=== PATIENT | female | born 1990 | race Hispanic/Latino ===

== ENCOUNTER 2022-07-14 15:08 | Day surgery (SDC) | payer OTHER ==
[2022-07-14 15:50] VITALS: BMI 34.2
[2022-07-14 16:35] LABS: Fetal Membranes Rupture No Membranes Rupture (No Rupture)
[2022-07-14 18:27] LABS: Bilirubin Neg (Negative); Blood, Urine Negative (Negative); Clarity Clear (Clear); Glucose, Urine (Dipstick) Normal (Negative); Ketone, Urine Negative (Negative); Leukocyte 25 (Negative); Nitrite Negative (Negative); Protein, Urine (Dipstick) 15 mg/dl (Neg-Trace)
[2022-07-14 18:29] LABS: Urine Culture Reflex No No
[2022-07-14 18:41] LABS: Bacteria/HPF Rare-Few HPF (None Seen); RBC/HPF 0-3 HPF (0-3); Squamous Epithelial 0-3 HPF (0-3); WBC/HPF 0-3 HPF (0-3)
[2022-07-14 18:42] LABS: Other Microscopic Description SEE COMMENTS
== END 2022-07-14 20:36 | disposition home or self-care (01) ==
LOC: CSHLD/OP 15:08
PROVIDERS: ATTEND Student in an Organized Health Care Education/Training Program
DX: O47.1 False labor at or after 37 completed weeks of gestation (principal); Z3A.37 37 weeks gestation of pregnancy; Z98.890 Other specified postprocedural states
CPT/HCPCS: 76819; 81001; 84112; 87086; 99283

== ENCOUNTER 2022-07-18 14:02 | Day surgery (SDC) | payer OTHER ==
[2022-07-18 14:25] VITALS: BMI 34.3
== END 2022-07-18 17:50 | disposition home or self-care (01) ==
LOC: CSHLD/OP 14:02
PROVIDERS: ATTEND Student in an Organized Health Care Education/Training Program
DX: O47.1 False labor at or after 37 completed weeks of gestation (principal); Z3A.38 38 weeks gestation of pregnancy
CPT/HCPCS: 99283

== ENCOUNTER 2022-07-19 07:11 | Inpatient (IN) | payer MEDICAID, OTHER ==
[2022-07-19 08:06] VITALS: BMI 34.3
[2022-07-19] MEDS ORDERED: Lidocaine 1% (PF) 30 ML VIAL SC PRN (08:18)
[2022-07-19] MEDS ORDERED: Acetaminophen 500 MG TAB PO PRN (08:18)
[2022-07-19] MEDS ORDERED: Ibuprofen 800 MG TAB PO PRN (08:18)
[2022-07-19] MEDS ORDERED: Promethazine HCl 25 MG/ML VIAL IM PRN ×2 (08:18→10:23)
[2022-07-19] MEDS ORDERED: Diphenoxylate HCl/Atropine Tablet PO PRN (08:18)
[2022-07-19] MEDS ORDERED: Misoprostol 200 MCG TAB PR PRN (08:18)
[2022-07-19] MEDS ORDERED: Carboprost 250 MCG/ML AMP IM PRN (08:18)
[2022-07-19] MEDS ORDERED: Ondansetron PF 4 MG/2 ML Vial IVP PRN ×3 (08:18→15:33)
[2022-07-19] MEDS ORDERED: hydrALAZINE 20 MG/ML VIAL SLOW IVP PRN ×2 (08:18→15:33)
[2022-07-19] MEDS ORDERED: Methylergonovine 0.2 MG/ML VIAL IM PRN (08:18)
[2022-07-19] MEDS ORDERED: Fentanyl 2 mcg/Bup 0.1% Cadd 100 ML ONE (08:29)
[2022-07-19] MEDS ORDERED: Lactated Ringer's 1,000 ML IV SCH (08:30)
[2022-07-19] MEDS ORDERED: NS w/ Oxytocin 30 units 500 ML IV SCH ×3 (08:30→15:33)
[2022-07-19 08:33] LABS: Hemoglobin 12.4 g/dL (12.0-15.5); Mean Corpuscular Hemoglobin 28.6 pg (27.0-33.0); Mean Corpuscular Volume 84.3 fl (81.6-98.3); Mean Platelet Volume 11.8 fl (7.4-10.4); Platelet Count 225 10x3/uL (150-450); RBC Distribution Width 13.3 % (11.5-14.5); Red Blood Cell (RBC) Count 4.33 10x6/uL (3.90-5.03); White Blood Cell (WBC) Count 11.9 10x3/uL (3.5-10.5)
[2022-07-19 08:58] LABS: HBSAg Index 0.21 S/CO (0-0.99); Hep B Surf Ag Non-Reactive S/CO (NonReactive)
[2022-07-19 08:59] LABS: Syphilis Antibody Nonreactive (Nonreactive); Syphilis Antibody Index 0.04 S/CO (<1.00 Non-Reactive)
[2022-07-19 09:09] LABS: SARS-CoV-2 NAA Rapid Test Not Detected (NotDetected)
[2022-07-19] MEDS ORDERED: Naloxone HCl 0.4 mg/ml Vial IVP PRN ×2 (10:23)
[2022-07-19] MEDS ORDERED: Moisturizing Cream (Eucerin) 113 GM JAR TOP PRN (10:23)
[2022-07-19] MEDS ORDERED: Acetaminophen 325 MG TAB PO PRN (10:23)
[2022-07-19] MEDS ORDERED: ePHEDrine Sulfate 50 MG/10 ML VIAL SLOW IVP PRN (10:23)
[2022-07-19] MEDS ORDERED: Lactated Ringer's 500 ML IV PRN (10:23)
[2022-07-19] MEDS ORDERED: diphenhydrAMINE 50 MG/ML VIAL IVP PRN (10:23)
[2022-07-19] MEDS ORDERED: Fentanyl 2 mcg/Bupivacaine 0.1% Cassette 100 ML EPIDURAL SCH (10:30)
[2022-07-19] MEDS ORDERED: Communication Order-Pharmacy FS SCH (10:30)
[2022-07-19] MEDS ORDERED: Misoprostol 200 MCG TAB VAG PRN (15:33)
[2022-07-19] MEDS ORDERED: Lanolin Ointment 7 GM TUBE TOP PRN (15:33)
[2022-07-19] MEDS ORDERED: HYDROcodone/Acetaminophen 5/325 mg Tablet PO PRN ×2 (15:33)
[2022-07-19] MEDS ORDERED: Milk Of Magnesia 30 ML UDCUP PO PRN (15:33)
[2022-07-19] MEDS ORDERED: Bisacodyl 10 MG SUPP PR PRN (15:33)
[2022-07-19] MEDS ORDERED: Boostrix 0.5 ML (Tdap) VIAL (>/=7 yrs of age) IM ONE (15:33)
[2022-07-19] MEDS ORDERED: Bupivacaine 0.25% HCL 30 ML VIAL ONE (19:45)
[2022-07-19] MEDS ORDERED: Lidocaine 2% PF 5 ML VIAL ONE (19:45)
[2022-07-19] MEDS: Docusate 100 MG CAP PO SCH (20:09)
[2022-07-19] MEDS: Ibuprofen 800 MG TAB PO SCH (20:09)
[2022-07-20] MEDS: Ibuprofen 800 MG TAB PO SCH ×4 (03:59→21:36)
[2022-07-20] MEDS: Prenatal Vitamin 1 TAB PO SCH (08:50)
[2022-07-20] MEDS: Docusate 100 MG CAP PO SCH ×2 (08:50→21:36)
[2022-07-20] MEDS: Ferrous Sulfate 325 MG TAB PO SCH ×2 (08:51→17:45)
[2022-07-21] MEDS: Ibuprofen 800 MG TAB PO SCH (05:14)
[2022-07-21 06:01] LABS: Hemoglobin 11.1 g/dL (12.0-15.5)
[2022-07-21 07:29] VITALS: BP 110/59; TEMP 98.1
[2022-07-21] MEDS: Ferrous Sulfate 325 MG TAB PO SCH ×2 (07:36→07:40)
[2022-07-21] MEDS: Docusate 100 MG CAP PO SCH (08:37)
[2022-07-21] MEDS: Prenatal Vitamin 1 TAB PO SCH (08:37)
== END 2022-07-21 11:15 | disposition home or self-care (01) | DRG 807 ==
LOC: CSHLD/OP 07:11 → CSHLD 09:46 → CSHPP 14:21
PROVIDERS: ADMIT Student in an Organized Health Care Education/Training Program; ATTEND Student in an Organized Health Care Education/Training Program
PROC: 10E0XZZ Delivery of Products of Conception, External Approach (ICD-10-PCS; principal; 2022-07-20)
DX: O80 Encounter for full-term uncomplicated delivery (principal); Z37.0 Single live birth; Z3A.38 38 weeks gestation of pregnancy; Z20.822 Contact with and (suspected) exposure to COVID-19
CPT/HCPCS: 51702; 85014; 85018; 85027; 86780; 86850; 86900; 86901; 87340; 99285; J2001; S0020; U0002